=== PATIENT | male | born 1980 | race Caucasian/White ===

== ENCOUNTER 2020-10-06 10:19 | Emergency (ER) | payer MEDICAID, SELFPAY ==
[2020-10-06 10:19] VITALS: BP 155/95; PULSE 110; RESP 16; TEMP 37.1; O2SAT 99; BMI 39.0
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
--- NOTE | 2020-10-06 10:32 | CT_ITS ---
PROCEDURE: CT HEAD/BRAIN WO CON CLINICAL INDICATION: HEADACHE Severe headache with blurred vision, history of aneurysm COMPARISON: No exams were available for comparison TECHNIQUE: Axial images obtained. All CT scans at the facility use one or more dose reduction, viz: automated exposure control, ma/kV adjustment per patient size (including targeted exams where dose is matched to indication, i.e. head), or iterative reconstruction technique. FINDINGS: No midline shift, mass effect, intracranial hemorrhage, hydrocephalus, or extra-axial fluid collection is evident. The calvarium has an unremarkable appearance. No mastoid effusion. No sinus air-fluid level. IMPRESSION: No acute intracranial finding Dictated by: Papo Weaver MD 10/06/2020 11:49 Papo Weaver MD in [facility] 10/06/2020 11:49
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
[2020-10-06 10:50] VITALS: BP 148/94; PULSE 111; O2SAT 98
--- NOTE | 2020-10-06 11:19 | PC.NURSE ---
Patient gone to radiology
--- NOTE | 2020-10-06 11:19 | PC.NURSE ---
Pt with rad.
--- NOTE | 2020-10-06 11:28 | PC.NURSE ---
back from ct
[2020-10-06 11:31] LABS: Basophils # 0.1 K/mm3 (0-0.2); Basophils % 0.8 % (0.1-2.0); Eosinophils # 0.3 K/mm3 (0.0-0.4); Eosinophils % 1.9 % (0.1-12.0); Hematocrit 51.9 % (42.0-52.0); Hemoglobin 15.4 g/dL (14.1-18.0); Lymphocytes # 2.2 K/mm3 (0.7-4.5); Mean Corpuscular HGB Conc 29.8 g/dL (31.8-35.4); Mean Corpuscular Hemoglobin 27.2 pg (27.0-31.2); Mean Corpuscular Volume 91.3 fl (80-94); Mean Platelet Volume 12.7 fl (7.4-10.4); Monocytes # 0.6 K/mm3 (0.1-1.0); Monocytes % 4.4 % (1.7-9.3); Neutrophils # 9.9 K/mm3 (1.8-7.8); Platelet Count 319 K/mm3 (142-424); Red Blood Count 5.68 M/mm3 (4.60-6.20); Red Cell Distribution Width 17.2 % (11.5-17.5); White Blood Count 13.1 K/mm3 (4.8-10.8)
[2020-10-06 11:35] VITALS: BP 149/100; PULSE 100; O2SAT 98
[2020-10-06 11:44] LABS: Chloride 100 mmol/L (98-107); Potassium 4.2 mmoL/L (3.5-5.1); Sodium 137 mmol/L (136-145)
[2020-10-06 11:47] LABS: Blood Urea Nitrogen 15 mg/dl (9-20); Creatinine Clearance Estimated 200 mL/min (50-200); Estimated Glomerular Filt Rate 94 ml/min (>60); GFR (African American) 114 ML/MIN (>60)
[2020-10-06 11:48] LABS: Anion Gap 14.2 mEq/L (5-15); Calcium 9.9 mg/dl (8.4-10.2); Carbon Dioxide 27 mmol/L (22.0-30.0); Glucose 110 mg/dl (74-100)
--- NOTE | 2020-10-06 12:14 | XR_ITS ---
PROCEDURE: XR CHEST 2V CLINICAL HISTORY: ? pneumonia on CTA neck COMPARISON: No exams were available for comparison FINDINGS: The cardiomediastinal silhouette and pulmonary vascularity are within normal limits. The lungs are clear without infiltrates, suspicious nodules, or pleural effusions. No acute bony abnormalities. IMPRESSION: No acute findings. Dictated by: Papo Weaver MD 10/06/2020 12:53 Papo Weaver MD in [facility] 10/06/2020 12:53
[2020-10-06 12:15] VITALS: BP 149/70; PULSE 84; O2SAT 96
[2020-10-06 13:03] VITALS: BP 148/91; PULSE 89; O2SAT 98
[2020-10-06 13:11] VITALS: BP 148/91; PULSE 87; RESP 16; TEMP 36.9; O2SAT 98
[2020-10-07 11:30] LABS: Covid-19 Nasal PCR Sendout Lex Not Detected
== END 2020-10-06 13:13 | disposition home or self-care (01) ==
PROVIDERS: Emergency Provider Emergency Medicine
DX: G44.309 Post-traumatic headache, unspecified, not intractable (principal); Z20.828 Contact with and (suspected) exposure to other viral communicable diseases; V89.0XXD Person injured in unspecified motor-vehicle accident, nontraffic, subsequent encounter
CPT/HCPCS: 70450; 70496; 70498; 71046; 80048; 85025; 99284; Q9967; U0004

== ENCOUNTER 2021-03-29 06:37 | Emergency (ER) | payer MEDICAID, SELFPAY ==
[2021-03-29] VITALS (16 sets, daily range): BP systolic 115–206; BP diastolic 74–163; PULSE 65–90; RESP 18; TEMP 36.3–36.7; O2SAT 93–97; BMI 39.0
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
[2021-03-29 07:22] LABS: Basophils # 0.1 K/mm3 (0-0.2); Basophils % 0.9 % (0.1-2.0); Eosinophils # 0.2 K/mm3 (0.0-0.4); Eosinophils % 1.8 % (0.1-12.0); Hematocrit 41.8 % (42.0-52.0); Hemoglobin 14.3 g/dL (14.1-18.0); Lymphocytes # 1.2 K/mm3 (0.7-4.5); Lymphocytes % 11.6 % (10-50); Mean Corpuscular HGB Conc 34.3 g/dL (31.8-35.4); Mean Corpuscular Hemoglobin 27.7 pg (27.0-31.2); Mean Corpuscular Volume 80.9 fl (80-94); Mean Platelet Volume 7.5 fl (7.4-10.4); Monocytes # 0.6 K/mm3 (0.1-1.0); Monocytes % 5.6 % (1.7-9.3); Neutrophils # 8.3 K/mm3 (1.8-7.8); Platelet Count 225 K/mm3 (142-424); Red Blood Count 5.16 M/mm3 (4.60-6.20); Red Cell Distribution Width 15.3 % (11.5-17.5); White Blood Count 10.3 K/mm3 (4.8-10.8)
[2021-03-29 07:32] LABS: Alanine Aminotransferase 24 U/L (12-78); Albumin Level 4.5 g/dl (3.5-5.0); Albumin/Globulin Ratio 1.5 (1.1-1.8); Alkaline Phosphatase 88 U/L (38-126); Aspartate Amino Transferase 27 U/L (17-59); Bilirubin,Total 0.9 mg/dl (0.2-1.3); Blood Urea Nitrogen 11 mg/dl (9-20); Calcium 8.8 mg/dl (8.4-10.2); Carbon Dioxide 29 mmol/L (22.0-30.0); Creatinine Clearance Estimated 178 mL/min (50-200); Estimated Glomerular Filt Rate 83 ml/min (>60); GFR (African American) 101 ML/MIN (>60); Glucose 102 mg/dl (74-100); Potassium 3.9 mmoL/L (3.5-5.1); Sodium 138 mmol/L (136-145); Total Protein,Serum 7.5 g/dl (6.3-8.2)
[2021-03-29 07:37] LABS: C-Reactive Protein 9.6 mg/L (0-4)
--- NOTE | 2021-03-29 07:37 | HMH.EDLOEX ---
ED Disposition Clinical Impression: Tibial plateau fracture, left Qualifiers: Encounter type: initial encounter Fracture type: closed Qualified Code(s): S82.142A - Displaced bicondylar fracture of left tibia, initial encounter for closed fracture Disposition: Home, Self-Care Condition on Discharge: Good Instructions: DI for Tibial Plateau Fracture Additional Instructions: call ortho today for follow -up Prescriptions: Hydrocod/Acet 5/325 mg [Coker 5/325mg tablet] 1 tab PO TID PRN #10 tab PRN Reason: Moderate To Severe Pain Transmission Status: Sent to [facility] Referrals: ProviderFracisco MD [Primary Care Provider] - Pascual Marley MD [Staff Physician] - - Critical Care Critical Care Time: No Attestation: On 03/29/21, the high probability of a clinically significant, sudden or life threatening deterioration of the following system(s) required my full and direct attention, intervention and personal management. The time I documented below is in addition to time spent performing reported procedures but includes the following listed in this critical care notation. Medical Decision Making - Medical Records Medical records reviewed: Yes: I reviewed the patient's medical records. - Flaco Inquiry Pt receiving controlled substance: No Vital Signs: 03/29/21 06:50 03/29/21 07:46 03/29/21 08:00 Temperature 98.0 F Temperature Source Oral Pulse Rate 77 75 Pulse Rate [Right] 90 Respiratory Rate 18 18 Blood Pressure 172/113 H 205/110 H Blood Pressure [Right Arm] 142/97 H Blood Pressure Mean 124 140 Blood Pressure Mean [Right Arm] 112 Blood Pressure Source [Right Arm] Automatic Cuff Blood Pressure Position [Right Arm] Sitting 02 Sat by Pulse Oximetry 97 97 94 L Oxygen Delivery Method Room Air 03/29/21 08:31 03/29/21 09:00 03/29/21 09:30 Temperature Temperature Source Pulse Rate 86 86 72 Pulse Rate [Right] Respiratory Rate 18 18 18 Blood Pressure 185/160 H 206/126 H 184/163 H Blood Pressure [Right Arm] Blood Pressure Mean 167 152 170 Blood Pressure Mean [Right Arm] Blood Pressure Source [Right Arm] Blood Pressure Position [Right Arm] 02 Sat by Pulse Oximetry 97 96 96 Oxygen Delivery Method 03/29/21 10:00 03/29/21 10:30 03/29/21 11:00 Temperature Temperature Source Pulse Rate 65 Pulse Rate [Right] Respiratory Rate Blood Pressure 143/88 H 141/93 H 147/90 H Blood Pressure [Right Arm] Blood Pressure Mean 113 109 Blood Pressure Mean [Right Arm] Blood Pressure Source [Right Arm] Blood Pressure Position [Right Arm] 02 Sat by Pulse Oximetry 93 L Oxygen Delivery Method - Lab Data Lab results reviewed: Yes: I reviewed the patient's lab results. Lab Results 03/29/21 06:50: WBC 10.3, RBC 5.16, Hgb 14.3, Hct 41.8 L, MCV 80.9, MCH 27.7, MCHC 34.3, RDW 15.3, Plt Count 225, MPV 7.5, Neut % (Auto) 80.0, Lymph % (Auto) 11.6, [place] % (Auto) 5.6, Eos % (Auto) 1.8, Baso % (Auto) 0.9, Neut # (Auto) 8.3 H, Lymph # (Auto) 1.2, [place] # (Auto) 0.6, Eos # (Auto) 0.2, Baso # (Auto) 0.1, ESR 16 H 03/29/21 06:50: Sodium 138, Potassium 3.9, Chloride 101, Carbon Dioxide 29, Anion Gap 11.9, BUN 11, Creatinine 1.00, Estimated Creat Clear 178, Estimated GFR 83, Est GFR ( Amer) 101, Glucose 102 H, Calcium 8.8, Total Bilirubin 0.9, AST 27, ALT 24, Alkaline Phosphatase 88, C-Reactive Protein 9.6 H, Total Protein 7.5, Albumin 4.5, Globulin 3.0, Albumin/Globulin Ratio 1.5, Procalcitonin 0.108 Result diagrams: 03/29/21 06:50 03/29/21 06:50 Orders (Tests/Meds): ED MEDICATIONS Discontinued Medications Generic Name Dose Route Start Last Admin Trade Name Freq PRN Reason Stop Dose Admin Ketorolac Tromethamine 30 mg 03/29/21 07:07 03/29/21 07:11 Ketorolac 30mg/Ml Vial IV 03/29/21 07:08 30 mg ONCE ONE Administration - Radiology Data #1 Image(s): Pelvis, Femur, Knee, Tib/Fib Image Reviewed: Yes I have
[2021-03-29 07:47] LABS: Erythrocyte Sedimentation Rate 16 mm/hr (0-15)
[2021-03-29 07:51] LABS: Procalcitonin 0.108 ng/mL (0.0-2.0)
--- NOTE | 2021-03-29 07:53 | PC.NURSE ---
PATIENT REQUESTED STAFF TO FAX PATIENT INFORMATION TO PATIENT'S MEMBERSHIP SALES MANAGER OFFICE. PATIENT INFORMED STAFF COULD NOT FAX ANYTHING WITH PATIENT INFORMATION ON IT TO HIS MEMBERSHIP SALES MANAGER'S OFFICE.
[2021-03-29 07:58] LABS: Anion Gap 11.9 mEq/L (5-15); Chloride 101 mmol/L (98-107)
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
--- NOTE | 2021-03-29 09:33 | PC.NURSE ---
pt to CT
--- NOTE | 2021-03-29 11:10 | PC.NURSE ---
CALLED RADIOLOGY CHECKING ON SCAN
--- NOTE | 2021-03-29 11:55 | PC.NURSE ---
Radiology contacted to check on the results for the ct knee results which are not read at this time.
--- NOTE | 2021-03-29 12:06 | PC.NURSE ---
spoke with jose david in radiology, states radiologist is reading CT at this time.
--- NOTE | 2021-03-29 12:56 | PC.NURSE ---
GAVE STATUS UPDATE TO PATIENT AUNT WITH PATIENT PERMISSION
--- NOTE | 2021-03-29 13:01 | PC.NURSE ---
PATIENT REQUESTED FOR MANNIE BEVERLY TO CHARGE PATIENT'S CELL PHONE AT [facility]
== END 2021-03-29 15:27 | disposition home or self-care (01) ==
PROVIDERS: Emergency Provider Emergency Medicine
DX: S82.142A Displaced bicondylar fracture of left tibia, initial encounter for closed fracture (principal); V29.3XXA Motorcycle rider (driver) (passenger) injured in unspecified nontraffic accident, initial encounter; Y92.410 Unspecified street and highway as the place of occurrence of the external cause
CPT/HCPCS: 29505; 72170; 73552; 73562; 73590; 73700; 80053; 84145; 85025; 85651; 86140; 96374; 99282

== ENCOUNTER 2021-05-05 02:24 | Emergency (ER) | payer MEDICAID, SELFPAY ==
--- NOTE | 2021-05-05 02:19 | ECG_ITS ---
APPROVED REPORT Exam: Resting ECG HR:128 bpm ECG Measurements Heart Rate 128 AXES ID 150 P 47 QRSd 78 QRS -21 QT 296 T 45 QTc 432 Conclusion Sinus tachycardia Otherwise normal ECG Electronically signed by : Raza Ray, 05/05/2021 18:50:28
[2021-05-05 02:25] VITALS: BP 147/102; PULSE 128; RESP 20; TEMP 36.6; O2SAT 96; BMI 39.0
--- NOTE | 2021-05-05 02:37 | XR_ITS ---
PROCEDURE INFORMATION: Exam: XR Chest Exam date and time: 05/05/2021 2:37 AM Age: 40 years old Clinical indication: Other: Chest tightness TECHNIQUE: Imaging protocol: XR of the chest. Views: 2 views. COMPARISON: CR XR CHEST 2V 10/06/2020 12:17 PM FINDINGS: Lungs: Unremarkable. No consolidation. There is no focal mass. Pleural spaces: There is no pneumothorax. There is no pleural effusion. Heart/Mediastinum: Unremarkable. No cardiomegaly. Bones/joints: There is no fracture present. IMPRESSION: 1. There is no significant traumatic injury to the chest. 2. No acute cardiac or pulmonary process.
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
--- NOTE | 2021-05-05 02:41 | XR_ITS ---
PROCEDURE INFORMATION: Exam: XR Left Femur Exam date and time: 05/05/2021 2:41 AM Age: 40 years old Clinical indication: Injury or trauma; Fall; Sprain or strain; Thigh or upper leg; Injury date: 05/05/2021; Injury details: Twisted left leg pain hip to foot TECHNIQUE: Imaging protocol: XR Left femur. Views: 2 views. COMPARISON: CR XR FEMUR LT 2V 03/29/2021 7:14 AM FINDINGS: Bones/joints: Unremarkable. No acute fracture. The joints are well aligned. Soft tissues: Unremarkable. IMPRESSION: No evidence for significant traumatic injury.
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
[2021-05-05 03:03] LABS: Anion Gap 14.7 mEq/L (5-15); Blood Urea Nitrogen 15 mg/dl (9-20); Calcium 9.4 mg/dl (8.4-10.2); Carbon Dioxide 28 mmol/L (22.0-30.0); Chloride 99 mmol/L (98-107); Creatinine Clearance Estimated 162 mL/min (50-200); Estimated Glomerular Filt Rate 75 ml/min (>60); GFR (African American) 90 ML/MIN (>60); Glucose 138 mg/dl (74-100); Potassium 3.7 mmoL/L (3.5-5.1); Sodium 138 mmol/L (136-145)
[2021-05-05 03:08] LABS: C-Reactive Protein 4.5 mg/L (0-4)
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
[2021-05-05 03:22] LABS: Procalcitonin 0.181 ng/mL (0.0-2.0)
[2021-05-05 03:27] LABS: Troponin I < 0.01 ng/ml (0.00-0.034)
[2021-05-05 03:33] VITALS: BP 143/89; PULSE 105; O2SAT 93
[2021-05-05 03:37] LABS: Basophils # 0.1 K/mm3 (0-0.2); Basophils % 1.2 % (0.1-2.0); Eosinophils # 0.2 K/mm3 (0.0-0.4); Eosinophils % 1.8 % (0.1-12.0); Hematocrit 44.4 % (42.0-52.0); Hemoglobin 15.6 g/dL (14.1-18.0); Lymphocytes # 1.5 K/mm3 (0.7-4.5); Lymphocytes % 14.4 % (10-50); Mean Corpuscular HGB Conc 35.3 g/dL (31.8-35.4); Mean Corpuscular Hemoglobin 27.9 pg (27.0-31.2); Mean Corpuscular Volume 79.1 fl (80-94); Mean Platelet Volume 6.9 fl (7.4-10.4); Monocytes # 0.4 K/mm3 (0.1-1.0); Monocytes % 3.9 % (1.7-9.3); Neutrophils # 8.3 K/mm3 (1.8-7.8); Neutrophils % 78.7 % (37.0-80.0); Platelet Count 268 K/mm3 (142-424); Red Blood Count 5.61 M/mm3 (4.60-6.20); Red Cell Distribution Width 15.7 % (11.5-17.5); White Blood Count 10.6 K/mm3 (4.8-10.8)
[2021-05-05 03:58] LABS: Erythrocyte Sedimentation Rate 10 mm/hr (0-15)
[2021-05-05 04:51] VITALS: BP 151/72; PULSE 99; RESP 16; TEMP 36.6; O2SAT 97
== END 2021-05-05 04:52 | disposition home or self-care (01) ==
PROVIDERS: Emergency Provider Emergency Medicine; PCP Pediatrics
DX: M25.562 Pain in left knee (principal); R06.02 Shortness of breath; R07.9 Chest pain, unspecified
CPT/HCPCS: 71046; 72170; 73552; 73562; 73590; 73610; 73630; 80048; 84145; 84484; 85025; 85651; 86140; 93005; 99283; 99284